=== PATIENT | female | born 1985 | race Caucasian/White ===

== ENCOUNTER → 2016-12-18 | Outpatient (CLI) | payer OTHER | END | disposition home or self-care (01) | LOC: LAB.O 07:46 | PROVIDERS: ATTEND Family Medicine | DX: E78.00 Pure hypercholesterolemia, unspecified (principal); E61.2 Magnesium deficiency; E55.9 Vitamin D deficiency, unspecified; E53.8 Deficiency of other specified B group vitamins; D64.9 Anemia, unspecified ==

== ENCOUNTER → 2017-05-18 | Outpatient (CLI) | payer OTHER, SELFPAY ==
--- NOTE | 2017-05-18 14:42 | MRI ---
EXAM DESCRIPTION: Brain w/o Contrast CLINICAL HISTORY: 32 years, Female, HEADACHE COMPARISON: FINDINGS: Standard triplanar sequences. Diffusion-weighted sequences precious acute infarct. Gradient sequence is not show hemorrhage. Ventricles and sulci within normal limits. White matter within normal limits. Some mild ethmoid sinus mucosal thickening. Mild mucosal thickening in the maxillary sinuses bilaterally. No visualized air-fluid levels. IMPRESSION: Unremarkable evaluation the brain. Mild ethmoid and maxillary sinus mucosal thickening Electronically signed by: Xander Waddell MD 05/18/2017 2:41 PM CDT
--- NOTE | 2017-05-18 15:01 | MRI ---
EXAM DESCRIPTION: MRA Head and/or Neck CLINICAL HISTORY: 32 years, Female, HEADACHE COMPARISON: FINDINGS: Standard 3-D [id number] sequences. Maximum intensity projection images. In the posterior circulation both vertebral arteries about the same size. Basilar artery unremarkable Posterior communicating arteries are not clearly identified in either side used either very small or congenitally absent. No aneurysm in the [place]. Anterior communicating artery appears patent. Anterior and middle cerebral arteries within normal limits bilaterally. IMPRESSION: No aneurysm in the [place]. 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 Both vertebral arteries are about the same size. Remainder of examination is unremarkable. Electronically signed by: Xander Waddell MD 05/18/2017 3:00 PM CDT
== END | disposition home or self-care (01) ==
LOC: MRI 11:14
PROVIDERS: ATTEND Family Medicine
DX: R51 Headache (principal)

== ENCOUNTER 2017-07-01 01:51 | Emergency (ER) | payer OTHER, SELFPAY ==
--- NOTE | 2017-07-01 02:13 | ED.PDOC ---
History of Present Illness - General Chief Complaint: Skin/Abrasion/Tear Stated Complaint: hives Time Seen by Provider: 07/01/17 02:09 Source: patient, RN notes reviewed, Vital Signs reviewed, EMS notes reviewed Exam Limitations: no limitations - History of Present Illness Timing/Duration: 4-6 hours Severity: moderate Improving Factors: nothing Worsening Factors: nothing Associated Symptoms: denies symptoms - rash started at home, has had previously which was similar, no sob, cp or edema Allergies/Adverse Reactions: Allergies Cephalexin [From Keflex] Allergy (Unknown, Verified 07/01/17 02:07) Diphenhydramine [From Benadryl] Allergy (Unknown, Verified 07/01/17 02:06) Penicillin G Allergy (Verified 07/01/17 02:06) Home Medications: Ambulatory Orders Prednisone [Deltasone] 40 mg PO DAILY #10 tab 07/01/17 Review of Systems - Review of Systems Constitutional: Denies: chills, fever EENTM: Denies: eye pain, ear pain, nose pain, nose congestion, throat pain, throat swelling, mouth pain, mouth swelling Respiratory: Denies: cough, orthopnea, short of breath, stridor, wheezing Cardiology: Denies: chest pain, edema, palpitations, syncope Gastrointestinal/Abdominal: Denies: abdominal pain, constipation, diarrhea, nausea Musculoskeletal: Denies: joint pain, joint swelling, muscle pain, muscle stiffness Skin: States: rash - macular papular rash diffuse with no skin sluffing Neurological: Denies: headache, numbness, tingling Physical Exam - Physical Exam General Appearance: Alert, No apparent distress Ears, Nose, Throat: hearing grossly normal, normal ENT inspection, normal pharynx Neck: non-tender, full range of motion, supple Respiratory: chest non-tender, lungs clear, normal breath sounds, no respiratory distress Cardiovascular/Chest: normal peripheral pulses, regular rate, rhythm, no edema, no murmur Gastrointestinal/Abdominal: normal bowel sounds, non tender, soft Back Exam: normal inspection Extremity: normal range of motion, non-tender, normal inspection Neurologic: no motor/sensory deficits, alert, normal mood/affect Skin Exam: normal color, warm/dry Departure - Departure Clinical Impression: Rash due to allergy Time of Disposition: 02:15 Disposition: Discharge to Home or Self Care Condition: Good Departure Forms: ED Discharge - Pt. Copy, Patient Portal Self Enrollment Instructions: Allergy Testing Diet: resume usual diet Activity: increase activity as tolerated Referrals: SB ROWE [Primary Care Provider] - 1-2 Weeks Prescriptions: Prednisone [Deltasone] 40 mg PO DAILY #10 tab Home Medications: Ambulatory Orders Prednisone [Deltasone] 40 mg PO DAILY #10 tab 07/01/17 Additional Instructions: return if worsening, problem/ concern
[2017-07-01] MEDS: DEXAMETHASONE INJ 10 MG/ML VIAL PO ONE (02:21)
[2017-07-01] MEDS: CETIRIZINE HCL 10 MG TAB PO ONE (02:35)
[2017-07-01 02:46] VITALS: BP 128/84; TEMP 96.1; O2SAT 98
== END 2017-07-01 02:47 | disposition home or self-care (01) ==
LOC: ER 01:51
DX: L23.9 Allergic contact dermatitis, unspecified cause (principal); Z88.0 Allergy status to penicillin; Z88.8 Allergy status to other drugs, medicaments and biological substances

== ENCOUNTER → 2017-08-25 | Outpatient (CLI) | payer OTHER | LOC: LAB.O 07:06 | PROVIDERS: ATTEND Family Medicine | DX: E78.00 Pure hypercholesterolemia, unspecified (principal); E55.9 Vitamin D deficiency, unspecified; D64.9 Anemia, unspecified; E11.9 Type 2 diabetes mellitus without complications; E61.2 Magnesium deficiency; E53.8 Deficiency of other specified B group vitamins ==

== ENCOUNTER → 2017-09-27 | Outpatient (CLI) | payer OTHER ==
--- NOTE | 2017-09-27 21:11 | CT ---
EXAM DESCRIPTION: Sinuses: Computed Tomography. CLINICAL HISTORY: CHRONIC MAXILLARY SINUSITIS COMPARISON: None Available. TECHNIQUE: Spiral, axial 2.5 mm scans through the maxillofacial bones without contrast, soft tissue and bone algorithm. 2.0 mm reconstructions. Total Exam DLP: 275.93 mGy-cm. This exam was performed according to our departmental CT dose-optimization program which includes automated exposure control, adjustment of the mA and/or kV according to patient size and/or use of iterative reconstruction technique; to reduce radiation dose to as low as reasonably achievable (ALARA). FINDINGS: Mucoperiosteal thickening in the left maxillary antra predominantly at the base with minimal thickening of the right antrum. No air-fluid levels bilaterally. Bilateral ostiomeatal units are patent. Minimal mucoperiosteal thickening in the bilateral ethmoid air cells. Bilateral sphenoid air cells are small with mucoperiosteal thickening more on the left. Bilateral frontal sinuses are well aerated with no mucosal thickening or air-fluid levels. Minimal turbinate mucosal hypertrophy bilaterally. Bilateral jaswinder bullosa. Inferior posterior right septal spur. Mid septum slightly deviated to the left. The included mastoid air cells are unremarkable. Limited visualization of the internal auditory canals and ossicles shows no gross findings. Minimal enlargement of the bilateral adenoids with slight narrowing of the nasopharynx. IMPRESSION: 1. Chronic sinusitis involving some of the air cells in the sphenoid and ethmoid groups as well as minimal involvement of the maxillary antra, left more than right. Ostiomeatal units are patent. No acute sinusitis. 2. Minimal septal deviation minimal narrowing of the bilateral nasal passageways with bilateral jaswinder bullosa. 3. Minimal enlargement of the bilateral adenoids with slight narrowing of the nasopharynx. Electronically signed by: Ji Lopez MD 09/27/2017 9:10 PM [employer] Workstation: [id number]
== END ==
LOC: CT 15:29
PROVIDERS: ATTEND Otolaryngology Otolaryngology/Facial Plastic Surgery
DX: H93.13 Tinnitus, bilateral (principal); G50.1 Atypical facial pain; J32.0 Chronic maxillary sinusitis

== ENCOUNTER → 2018-02-08 | Outpatient (CLI) | payer OTHER | LOC: LAB 09:29 | PROVIDERS: ATTEND Family Medicine | DX: E78.00 Pure hypercholesterolemia, unspecified (principal); E61.2 Magnesium deficiency; E11.9 Type 2 diabetes mellitus without complications; E55.9 Vitamin D deficiency, unspecified; E53.8 Deficiency of other specified B group vitamins; D64.9 Anemia, unspecified ==

== ENCOUNTER → 2018-02-16 | Outpatient (CLI) | payer OTHER | LOC: LAB.O 10:47 | PROVIDERS: ATTEND Family Medicine | DX: R53.83 Other fatigue (principal) ==

== ENCOUNTER → 2019-03-10 | Outpatient (CLI) | payer OTHER ==
--- NOTE | 2019-03-10 14:45 | MRI ---
EXAM DESCRIPTION: Lumbar Spine w/o Contrast : Magnetic Resonance Imaging. CLINICAL HISTORY: M54.9. Low back pain, unspecified. COMPARISON: None. TECHNIQUE: Multiplanar, multiple standard sequences, non contrast MRI, lumbar spine. FINDINGS: L5-S1: The disc space is well visualized on T2 axial series 501, image 3. Disc desiccation and minimal disc space loss. No significant bulging. Minimal thickening of the posterior flavum ligaments. Bilateral pedicle shortening. AP canal diameter 9.5 mm. Bilateral mild foraminal stenosis. L4-L5: Disc desiccation with disc space preserved. No significant bulging. Bilateral mild hypertrophic facet arthrosis and thickened ligaments. Bilateral shortened pedicles. AP canal diameter 8.5 mm. Bilateral mild foraminal stenosis more left than right. L3-L4: Disc desiccation. Disc space maintained. Posterior right paracentral 5 mm protrusion of the disc in the midline into the right of midline impressing on the right ventral thecal sac and effacing the right subarticular recess, abutting the descending right L4 nerve. Bilateral mild hypertrophic facet arthrosis and thickened ligaments. Bilaterally shortened pedicles. AP canal diameter 7 mm. Moderate to severe bilateral foraminal narrowing. L2-L3: Disc space maintained with normal signal in the disc. No posterior bulge. Bilateral facet arthrosis and flavum ligament hypertrophy. Bilateral shortened pedicles. Bilateral narrowing of subarticular recesses. AP canal diameter 8.7 mm. Moderate to severe bilateral foraminal narrowing. L1-L2: Disc desiccation and disc space maintained. Trace retrolisthesis. Posterior broad-based bulge. Mild bilateral ligament thickening and facet hypertrophic arthrosis. Bilaterally shortened pedicles. AP canal diameter 10 mm. Bilateral mild to moderate foraminal narrowing. T12-L1: Disc desiccation and minimal disc space loss. Grade 1 retrolisthesis 2 mm. Posterior broad-based disc bulge abutting the cord. Conus terminates mid L1 body level. Bilateral mild foraminal narrowing.. Normal curvature of the spine. Paravertebral soft tissues unremarkable. Cord normal signal and caliber. Normal marrow signal in the remaining vertebral bodies and the posterior elements. Vertebral bodies are not compressed at any level. IMPRESSION: 1. Multiple levels of bilateral pedicle narrowing and hypertrophy of the facets and thickening of the posterior ligaments resulting in multiple levels of borderline to moderate canal stenosis, and multiple levels of unilateral or bilateral foraminal stenosis. 2. Right paracentral posterior protrusion of the L3-4 disc encroaching on the thecal sac and effacing the right subarticular recess. Moderate central canal stenosis. Correlate for right L4 radiculopathy. Moderate to severe bilateral foraminal narrowing 3. L1-2 retrolisthesis with borderline mild central canal stenosis. Borderline mild central canal stenosis at L5-S1. Mild to moderate central canal stenosis at L2-3 which is multifactorial. 4. Unilateral or bilateral foraminal stenosis at L5-S1, and L4-5. Moderate to severe bilateral foraminal narrowing L3-4, and L2-3. Electronically signed by: Ji Lopez MD 03/10/2019 2:43 PM CDT
== END ==
LOC: MRI 09:09
PROVIDERS: ATTEND Family Medicine
DX: M51.26 Other intervertebral disc displacement, lumbar region (principal); M48.061 Spinal stenosis, lumbar region without neurogenic claudication; M43.16 Spondylolisthesis, lumbar region

== ENCOUNTER → 2019-04-15 | Outpatient (CLI) | payer OTHER | LOC: LAB.O 09:32 | PROVIDERS: ATTEND Family Medicine | DX: E78.00 Pure hypercholesterolemia, unspecified (principal); E61.2 Magnesium deficiency; E11.9 Type 2 diabetes mellitus without complications; E55.9 Vitamin D deficiency, unspecified; E53.8 Deficiency of other specified B group vitamins; R53.83 Other fatigue ==

== ENCOUNTER → 2019-11-11 | Outpatient (CLI) | payer OTHER | LOC: LAB.O 10:40 | PROVIDERS: ATTEND Family Medicine | DX: E78.00 Pure hypercholesterolemia, unspecified (principal); E61.2 Magnesium deficiency; E11.9 Type 2 diabetes mellitus without complications; E55.9 Vitamin D deficiency, unspecified; E53.8 Deficiency of other specified B group vitamins ==

== ENCOUNTER → 2020-05-11 | Outpatient (CLI) | payer BC | LOC: LAB.O 10:34 | PROVIDERS: ATTEND Family Medicine | DX: E78.00 Pure hypercholesterolemia, unspecified (principal); E53.8 Deficiency of other specified B group vitamins; E55.9 Vitamin D deficiency, unspecified; E11.9 Type 2 diabetes mellitus without complications; E61.2 Magnesium deficiency; E60 Dietary zinc deficiency; E03.9 Hypothyroidism, unspecified ==